=== PATIENT | male | born 1950 | race Caucasian/White ===

== ENCOUNTER 2016-04-02 01:30 | Emergency (ER) | payer OTHER ==
[2016-04-02] MEDS ORDERED: KETOROLAC TROMETHAMINE 30 MG/1 ML VIAL IVPUSH ONE (01:33)
[2016-04-02] MEDS ORDERED: SODIUM CHLORIDE 1,000 ML IV STA (01:33)
[2016-04-02 01:35] VITALS: BP 122/74; PULSE 50; TEMP 97.4; BMI 25.7
[2016-04-02] MEDS ORDERED: KETOROLAC TROMETHAMINE 30 MG/1 ML VIAL ONE (01:39)
--- NOTE | 2016-04-02 01:43 | PDOC ---
History of Present Illness - General Chief Complaint: Pain Stated Complaint: LF FLANK PAIN Time Seen by Provider: 04/02/16 01:32 History Source: Patient, Old Records Exam Limitations: No Limitations - History of Present Illness Initial Comments: 04/02/16 01:37 66 Y M HTN HCOL PPM KIDNEY STONES, presents to ed c/o lt flank pain radiating to ant abd since 12 mn. vomited x 1. no fever. unable to void. similar to prior kidney stone pain in dec 2015. in ed, in mild distress, vomiting./ no chest pain or sob. no testicular pain. Past History - Past Medical History Allergies/Adverse Reactions: Allergies Allergy/AdvReac Type Severity Reaction Status Date / Time No Known Allergies Allergy Unverified 12/27/15 01:14 Home Medications: Ambulatory Orders Allopurinol 12/27/15 Atorvastatin Ca [Lipitor] 80 mg PO HS 12/27/15 Carvedilol 12.5 mg PO BID 12/27/15 Ramipril 12/27/15 Acetaminophen W/ Codeine #3 [Tylenol # 3] 2 combo PO Q6H PRN #20 tablet MDD 6 Aspirin [ASA -] 81 mg PO DAILY 04/02/16 Cardiac Disorders: Yes (PPM) HTN: Yes Hypercholesterolemia: Yes Kidney Stones: Yes - Surgical History Cardiac Surgery: Yes (PPM) - Psycho/Social/Smoking Cessation Hx Anxiety: No Suicidal Ideation: No Smoking History: Never smoked Have you smoked in the past 12 months: No Number of Cigarettes Smoked Daily: 0 Information on smoking cessation initiated: No Hx Alcohol Use: No Drug/Substance Use Hx: No Substance Use Type: None *Physical Exam - Vital Signs Last Vital Signs Temp Pulse Resp BP Pulse Ox 97.4 F L 50 L 14 122/74 100 04/02/16 01:32 04/02/16 01:32 04/02/16 01:32 04/02/16 01:32 04/02/16 01:32 - Physical Exam General Appearance: Yes: Nourished, Appropriately Dressed, Mild Distress HEENT: positive: Normal ENT Inspection Respiratory/Chest: positive: Lungs Clear, Normal Breath Sounds. negative: Respiratory Distress Cardiovascular: positive: Regular Rhythm, Regular Rate, Bradycardia Gastrointestinal/Abdominal: positive: Normal Bowel Sounds, Soft. negative: Tender Male Genitalia: positive: normal genitalia Musculoskeletal: positive: Normal Inspection. negative: CVA Tenderness Integumentary: positive: Normal Color Neurologic: positive: Fully Oriented, Alert, Normal Mood/Affect, Normal Response , Motor Strength 5 Progress Note - Progress Note Progress Note: renal colic review of CT from shows rt ureteral stone and lt parenchymal stone ivf/pain control/labs/reassess no need for further imaging *DC/Admit/Observation/Transfer Diagnosis at time of Disposition: Renal colic on left side - Discharge Dispostion Disposition: HOME Condition at time of disposition: Improved - Patient Instructions Additional Instructions: PLENTY OF FLUIDS MOTRIN 800 MG 3 TIMES A DAY FOR 3 DAYS FLOMAX ONCE A DAY UNTIL STONE PASSES PERCOCET AT FIRST SIGN OF PAIN RETURN IF FEVER, VOMITING, SEVERE PAIN SEE YOUR UROLOGIST THIS WEEK STRAIN YOUR URINE TO CATCH THE STONE AND IF YOU DO BRING IT TO YOUR DOCTOR
[2016-04-02 02:33] LABS: BASOPHIL 0.7 % (0-2.0); EOSINOPHIL 5.6 % (0-4.5); MCH 30.6 pg (25.7-33.7); MCHC 33.3 g/dl (32.0-35.9); MEAN CELL VOLUME 92.1 fl (80-96); MEAN PLT VOLUME 8.2 fl (7.5-11.1); NEUTROPHILS 52.3 % (42.8-82.8); PLATELET COUNT 232 K/MM3 (134-434); RDW 13.8 % (11.9-15.9)
[2016-04-02 02:35] LABS: URINE APPEARANCE CLEAR; URINE BILIRUBIN NEGATIVE (NEGATIVE); URINE COLOR LTYELLOW; URINE GLUCOSE (UA) NEGATIVE (NEGATIVE); URINE KETONE NEGATIVE (NEGATIVE); URINE LEUK ESTERASE NEGATIVE (NEGATIVE); URINE NITRITE NEGATIVE (NEGATIVE); URINE PROTEIN NEGATIVE (NEGATIVE); URINE UROBILINOGEN NEGATIVE E.U./dl (0.2-1.0)
[2016-04-02 02:45] LABS: URINE BLOOD 2+ (NEGATIVE)
[2016-04-02 02:49] LABS: URINE MUCUS RARE; URINE RBC 51 /hpf (0-3); URINE WBC 2 /hpf (3-5)
[2016-04-02 02:55] LABS: CALCIUM 8.4 mg/dL (8.5-10.1); CREATININE 1.4 mg/dL (0.7-1.3)
[2016-04-02] MEDS ORDERED: TAMSULOSIN HCL 0.4 MG CAP.ER.24H (FP) PO ONE (02:57)
[2016-04-02] MEDS ORDERED: TAMSULOSIN HCL 0.4 MG CAP.ER.24H (FP) ONE (02:57)
== END 2016-04-02 02:58 | disposition home or self-care (01) ==
LOC: FER 01:30
PROC: 3E0333Z Introduction of Anti-inflammatory into Peripheral Vein, Percutaneous Approach (ICD-10-PCS; principal; 2016-04-02)
PROC: 3E0337Z Introduction of Electrolytic and Water Balance Substance into Peripheral Vein, Percutaneous Approach (ICD-10-PCS; 2016-04-02)
DX: N23 Unspecified renal colic (principal); I10 Essential (primary) hypertension; E78.00 Pure hypercholesterolemia, unspecified; Z87.442 Personal history of urinary calculi
CPT/HCPCS: 36415; 80048; 81003; 81015; 85025; 99283-25

== ENCOUNTER 2020-02-04 10:29 | Emergency (ER) | payer OTHER | END 2020-02-04 12:52 | disposition home or self-care (01) | LOC: JVIRT 10:29 | DX: Z03.818 Encounter for observation for suspected exposure to other biological agents ruled out (principal) | CPT/HCPCS: C9803; G2012-GT; U0003 ==